=== PATIENT | male | born 1990 | race Two or more races ===

== ENCOUNTER → 2024-08-10 | Outpatient (CLI) | payer BC ==
[2024-08-10 10:24] LABS: Urine Bacteria None Seen /hpf (None Seen)
[2024-08-10 10:34] LABS: Basophils # (auto) 0.1 10 ^3/uL (0-0.2); Eosinophils # (auto) 0.1 10 ^3/uL (0-0.8); Mean Corpuscular Hemoglobin 31.2 pg (28.0-32.0); Monocytes # (auto) 0.7 10 ^3/uL (0-1.3)
[2024-08-10 10:36] LABS: Basophils % (auto) 0.7 % (0.0-2.0); Eosinophils % (auto) 1.7 % (0.0-7.0); Hematocrit 50.7 % (41.0-53.0); Hemoglobin 17.8 g/dL (13.5-17.5); Lymphocytes # (auto) 2.8 10 ^3/uL (0.4-5.4); Lymphocytes % (auto) 32.4 % (10.0-50.0); Mean Corpuscular Hgb Conc. 35.1 g/dL (32.0-36.0); Monocytes % (auto) 7.7 % (0.0-12.0); Neutrophils # (auto) 5.1 10 ^3/uL (1.6-8.6); Neutrophils % (auto) 57.5 % (37.0-80.0); Nucleated Red Blood Cells % 0.2 %; Platelet Count (auto) 268 10^3/uL (140-450); Red Blood Cells 5.69 10^6/uL (4.5-5.90); Red Cell Distribution Width 13.3 % (11.8-14.3); White Blood Cell 8.8 10^3/uL (4.4-10.8)
[2024-08-10 10:52] LABS: Urine Blood Negative /uL (Negative); Urine Clarity Clear (Clear); Urine Color Yellow (Yellow); Urine Protein, UAD Negative (Negative); Urine Specific Gravity 1.025 (1.001-1.035); Urine Urobilinogen Normal (Negative); Urine WBC 1 /hpf (0 - 3)
[2024-08-10 11:01] LABS: Albumin 4.5 g/dL (3.2-4.8); Alkaline Phosphatase 62 U/L (46-116); Anion Gap 4 (5-15); Aspartate Aminotransferase 26 U/L (13-40); BUN/Creatinine Ratio 8.7 (10.0-20.0); Blood Urea Nitrogen 9 mg/dL (9-23); Calcium 9.8 mg/dL (8.7-10.4); Carbon Dioxide 28 mmol/L (20-31); LDL Cholesterol 81 mg/dL (< 100); Potassium 4.4 mmol/L (3.5-5.1); Sodium 140 mmol/L (136-145)
[2024-08-10 11:02] LABS: Bilirubin, Total 0.7 mg/dL (0.2-1.0); Cholesterol 138 mg/dL (< 200); Total Protein 7.7 g/dL (5.7-8.2)
[2024-08-10 11:25] LABS: Alanine Aminotransferase 58 U/L (7-40); Chloride 108 mmol/L (98-107); Glucose 107 mg/dL (74-106); HDL Cholesterol 36 mg/dL (40-59); Triglycerides 197 mg/dL (< 150)
== END | disposition home or self-care (01) ==
LOC: LAB 09:43
PROVIDERS: ATTEND Nurse Practitioner Family
DX: Z00.01 Encounter for general adult medical examination with abnormal findings (principal); I10 Essential (primary) hypertension; R73.9 Hyperglycemia, unspecified; E66.9 Obesity, unspecified
CPT/HCPCS: 36415; 80053; 80061; 81001; 82043; 82306; 83036; 84443; 85025